=== PATIENT | female | born 1990 | race Hispanic/Latino ===

== ENCOUNTER → 2023-07-21 | Emergency (ER) | payer OTHER ==
--- NOTE | 2023-07-21 12:10 | EDPHYS ---
Physician Documentation [facility] Name: Lakeisha Muse Age: 33 yrs Sex: Female : 1990 Arrival Date: 07/21/2023 Time: 11:19 Bed 9 Private MD: ED Physician Satnam Rausch HPI: 07/21 12:07 This 33 yrs old Female presents to ER via Ambulatory with complaints of Flu ec2 Symptoms. 12:07 Patient arrives today for 4 days of symptoms. Patient reports she been experiencing ec2 cough and cold as well as nausea, vomiting, diarrhea. Reports decreased appetite. Patient reports no difficulty breathing. Multiple other sick contacts at home with the same symptoms.. Historical: - Allergies: 11:53 No Known Allergies; hb - Home Meds: 11:53 IMPLANTED CONTROL [Active]; hb - PMHx: 11:53 Bipolar disorder; hb - Immunization history:: Adult Immunizations up to date. - Social history:: Smoking status: . ROS: 12:07 Constitutional: as per hpi ec2 Exam: 12:07 Constitutional: GEN: NAD Head: atraumatic Eyes: EOMI Ears: External ears are normal. ec2 Mouth: No posterior oropharynx erythema, no exudates appreciated. CV: regular rate LUNGS: no respiratory distress, no wheezes, rales, or rhonchi ABD: non-distended, soft, nontender, not guarding, not rigid SKIN: no evidence of rashes MSK: no evidence of trauma NEURO: moves all extremities equally Vital Signs: 11:52 BP 124 / 87; Pulse 103; Resp 20; Temp 98.1(TE); Pulse Ox 100% on R/A; Weight 108.8 kg; hb Pain 5/10; 11:52 Pain Scale: Adult hb MDM: 12:06 Patient medically screened. ec2 12:07 Data reviewed: vital signs. ED course: Patient arrives today for URI signs and symptoms ec2 with associated nausea, vomiting, diarrhea. Examination remarkable for well-appearing nontoxic dividual is otherwise in no acute distress with a reassuring cardiopulmonary examination with minimal tachycardia appreciated. I suspect a viral infection given the multiple sick contacts with the same symptoms. Will discharge home with prescription for cough medication as well as nausea medication. Low suspicion for pneumonia given lack of lung sounds differences, low suspicion for PATRIC or dehydration given her general well appearance. Accordingly do not feel lab work or chest x-ray will be beneficial in this setting.. 12:10 ED course: Additionally viral swabs would not be management changing.. ec2 Administered Medications: No medications were administered Disposition Summary: 07/21/23 12:09 Discharge Ordered Notes: Location: Home ec2 Condition: Stable ec2 Diagnosis - Viral infection, unspecified ec2 Followup: ec2 - With: Private Physician - When: - Reason: Recheck today's complaints Discharge Instructions: - Discharge Summary Sheet ec2 Forms: - Family Work Release aa5 - Work release form ec2 - Medication Reconciliation Form ec2 - Thank You Letter ec2 - Antibiotic Education ec2 - Prescription Opioid Use ec2 - Patient Portal Instructions ec2 - Leadership Thank You Letter ec2 Prescriptions: - Zofran 4 mg Oral Tablet - take 1 tablet ORAL route every 12 hours As needed; 20 tablet; Refills: 0, ec2 Product Selection Permitted - Tessalon Perles 100 mg Oral Capsule - take 1 capsule ORAL route every 8 hours As needed; 15 capsule; Refills: 0, ec2 Product Selection Permitted Signatures: Diane Lantigua, RN RN Satnam Rausch MD MD ec2
--- NOTE | 2023-07-21 12:10 | ER ---
Nurse's Notes [facility] Name: Lakeisha Muse Age: 33 yrs Sex: Female : 1990 Arrival Date: 07/21/2023 Time: 11:19 Bed 9 Private MD: Diagnosis: Viral infection, unspecified Presentation: 07/21 11:52 Chief complaint: N/V/D, malaise, body aches, sore throat, headache, and SOB x 4 days. hb Coronavirus screen: At this time, the client does not indicate any symptoms associated with coronavirus-19. Ebola Screen: No symptoms or risks identified at this time. Initial Sepsis Screen: Does the patient meet any 2 criteria? No. Patient's initial sepsis screen is negative. Does the patient have a suspected source of infection? No. Patient's initial sepsis screen is negative. Risk Assessment: Do you want to hurt yourself or someone else? Patient reports no desire to harm self or others. Onset of symptoms was July 17, 2023. 11:52 Method Of Arrival: Ambulatory hb 11:52 Acuity: CHERRY 4 hb Historical: - Allergies: 11:53 No Known Allergies; hb - Home Meds: 11:53 IMPLANTED CONTROL [Active]; hb - PMHx: 11:53 Bipolar disorder; hb - Immunization history:: Adult Immunizations up to date. - Social history:: Smoking status: . Screenin:59 [facility] ED Fall Risk Assessment (Adult) Score/Fall Risk Level 0 - 2 = Low Risk hb Oriented to surroundings, Maintained a safe environment, Educated pt \T\ family on fall prevention, incl call for assistance when getting out of bed. Abuse screen: Denies threats or abuse. Denies injuries from another. Nutritional screening: No deficits noted. Tuberculosis screening: No symptoms or risk factors identified. Assessment: 11:59 General: Appears in no apparent distress. Behavior is calm, cooperative. Pain: Pain hb currently is 5 out of 10 on a pain scale. Neuro: Level of Consciousness is awake, alert, obeys commands, Oriented to person, place, time, situation. Cardiovascular: Patient's skin is warm and dry. Respiratory: Respiratory effort is even, unlabored, Respiratory pattern is regular, symmetrical. 12:53 Reassessment: Patient is alert, oriented x 3, equal unlabored respirations, skin aa5 warm/dry/pink. Vital Signs: 11:52 BP 124 / 87; Pulse 103; Resp 20; Temp 98.1(TE); Pulse Ox 100% on R/A; Weight 108.8 kg; hb Pain 5/10; 11:52 Pain Scale: Adult hb ED Course: 11:25 Patient arrived in ED. rg4 11:25 Satnam Rausch MD is Attending Physician. ec2 11:53 Triage completed. hb 11:59 Arm band placed on. hb 11:59 Patient has correct armband on for positive identification. Provided Education on: . hb 11:59 No provider procedures requiring assistance completed. Patient did not have IV access hb during this emergency room visit. Administered Medications: No medications were administered Medication: 11:59 VIS not applicable for this client. hb Outcome: 12:09 Discharge ordered by . ec2 12:53 Discharged to home ambulatory, aa5 12:53 Condition: stable 12:53 Discharge instructions given to patient, Instructed on discharge instructions, follow up and referral plans. medication usage, Demonstrated understanding of instructions, follow-up care, medications, Prescriptions given X 2, 12:54 Patient left the ED. aa5 Signatures: Viry Llamas RN RN aa5 Diane Lantigua, Myrna Brown RN rg4 Satnam Rausch MD MD ec2
[2023-07-21 14:52] VITALS: BP 124/87; TEMP 98.1; O2SAT 100
== END ==
LOC: ER 11:19
DX: B34.9 Viral infection, unspecified (principal); R05.9 Cough, unspecified
CPT/HCPCS: 99283

== ENCOUNTER 2023-07-27 13:27 | Inpatient (IN) | payer OTHER ==
--- NOTE | 2023-07-27 14:35 | RAD REPORT ---
EXAM DESCRIPTION: CT - Head C Spine Mpr Wo Con - 07/27/2023 1:56 pm CLINICAL HISTORY: Head and neck injury status post fall. Head and neck pain COMPARISON: None. TECHNIQUE: Computed axial tomography of the head and cervical spine was obtained. Sagittal and coronal reconstruction was performed. All CT scans are performed using dose optimization technique as appropriate and may include automated exposure control or mA/KV adjustment according to patient size. FINDINGS: An intracranial bleed is not seen. The ventricles are normal in caliber. No significant hypodensity within the brain. An extra-axial fluid collection is not noted. 2.4 centimeter calcification abuts the left aspect of the falx. No surrounding edema Fluid within the visualized sinuses and mastoids is not seen A cervical fracture is not visualized. No dislocation is noted. Mild ground-glass opacity right upper lobe IMPRESSION: No acute intracranial abnormality is seen. A 2.4 centimeter calcification abuts the left aspect of the falx. It probably is idiopathic. A mening ioma is a another consideration. It is recommended that the patient have a non emergent MRI brain wit h contrast for further evaluation A cervical fracture is not visualized. Mild ground-glass opacity right upper lobe indicative of mild alveolitis
[2023-07-27 15:04] LABS: Absolute Lymphocytes (CBC) 1.3 K/uL (0.7-4.9); Hematocrit 38.5 % (36.0-45.0); Lymphocytes % 9.4 % (15.3-44.8); MCV 70.3 fL (80-100); MPV 8.9 fL (7.6-11.3); Platelets 285 thou/uL (152-406); RBC Red Blood Cell Count 5.48 M/uL (3.86-4.86)
[2023-07-27] MEDS ORDERED: ONDANSETRON 4 MG/2 ML VIAL ONE (15:09)
[2023-07-27] MEDS ORDERED: IPRATROPIUM BROM 0.5MG/2.5ML ONE (15:09)
[2023-07-27] MEDS ORDERED: LEVALBUTEROL 1.25 MG/3 ML NEB ONE (15:09)
[2023-07-27] MEDS ORDERED: AZITHROMYCIN 500 MG INJ IVPB ONE (15:09)
[2023-07-27] MEDS ORDERED: CEFTRIAXONE 1000 MG/VIAL ONE (15:09)
[2023-07-27] MEDS ORDERED: FAMOTIDINE 20 MG/2 ML VIAL IV ONE (15:10)
[2023-07-27] MEDS ORDERED: NA CHLORIDE 0.9% 2,000 ML ONE (15:10)
[2023-07-27] MEDS ORDERED: NA CHLORIDE 0.9% 250 ML ONE (15:10)
[2023-07-27 15:18] LABS: Albumin 3.3 g/dL (3.4-5.0); Bilirubin Total 0.4 mg/dL (0.2-1.0); Protein, Total 9.3 g/dL (6.4-8.2)
[2023-07-27 15:25] LABS: Potassium 2.6 mEq/L (3.5-5.1)
[2023-07-27 15:40] LABS: Protime INR 1.21
[2023-07-27 15:44] LABS: Magnesium 2.1 mg/dL (1.6-2.4); Troponin High Sensitivity 4.1 pg/mL (<58.9)
[2023-07-27 15:49] LABS: Blood O2 Saturation 97.8 % (92-98.5)
[2023-07-27 15:57] LABS: SARS-CoV-2 Antigen Rapid Res Negative (Negative)
[2023-07-27 16:29] LABS: Specific Gravity 1.023 (1.005-1.030)
[2023-07-27 16:36] LABS: Specific Gravity 1.023 (1.005-1.030); Urine Bacteria <20 /HPF (<20); Urine Bilirubin NEGATIVE (Negative); Urine Blood 2+ (Negative); Urine Clarity Extremely Turbid (Clear); Urine Color Yellow (Yellow); Urine Glucose NEGATIVE (Negative); Urine Granular Casts 0-5 /LPF (None Seen); Urine Mucus Slight /HPF (None Seen); Urine Protein 2+ (Negative); Urine RBC <5 /HPF (None Seen); Urine Urobilinogen Normal (Normal); Urine pH 6.5 (5.0-7.0)
[2023-07-27] MEDS ORDERED: POTASSIUM 25 MEQ EFFERV TAB ONE (16:36)
[2023-07-27] MEDS ORDERED: NS KCL 20MEQ 0 ML IV ONE (16:36)
[2023-07-27] MEDS ORDERED: KCL 20 MEQ/100 mL IVPB 100 ML IV ONE (16:37)
--- NOTE | 2023-07-27 17:05 | EDPHYS ---
Physician Documentation [facility] Name: Lakeisha Muse Age: 33 yrs Sex: Female : 1990 Arrival Date: 07/27/2023 Time: 13:27 Bed 6 Private MD: ED Physician Rony Carrera HPI: 07/27 16:54 This 33 yrs old Female presents to ER via Ambulatory with complaints of Passed celio Out Prior To Arrival, Mouth Problem, Head Injury-Adult. 16:54 The patient has experienced syncope, collapsed. Onset: The symptoms/episode celio began/occurred just prior to arrival, today. Duration: This was a single episode, that is still ongoing. Context: the episode(s) was witnessed, by family. Associated injury: Head/face: contusion. Associated signs and symptoms: Pertinent positives: dizziness, nausea, vomiting, weakness. Current symptoms: headache. The patient has not experienced similar symptoms in the past. 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 - Social history:: Smoking status: Patient denies any tobacco usage or history of. ROS: 16:56 Constitutional: Negative for fever, chills, and weight loss, Eyes: Negative for injury, celio pain, redness, and discharge, ENT: Negative for injury, pain, and discharge, Neck: Negative for injury, pain, and swelling, Cardiovascular: Negative for chest pain, palpitations, and edema, Respiratory: Negative for shortness of breath, cough, wheezing, and pleuritic chest pain, Back: Negative for injury and pain, : Negative for injury, bleeding, discharge, and swelling, MS/Extremity: Negative for injury and deformity, Skin: Negative for injury, rash, and discoloration, Psych: Negative for depression, anxiety, suicide ideation, homicidal ideation, and hallucinations, Allergy/Immunology: Negative for hives, rash, and allergies, Endocrine: Negative for neck swelling, polydipsia, polyuria, polyphagia, and marked weight changes, 16:56 Abdomen/GI: Positive for abdominal pain, nausea and vomiting, abdominal cramps, Exam: 16:56 Constitutional: This is a well developed, well nourished patient who is awake, alert, celio and in no acute distress. Head/Face: Normocephalic, atraumatic. Eyes: Pupils equal round and reactive to light, extra-ocular motions intact. Lids and lashes normal. Conjunctiva and sclera are non-icteric and not injected. Cornea within normal limits. Periorbital areas with no swelling, redness, or edema. ENT: Nares patent. No nasal discharge, no septal abnormalities noted. Tympanic membranes are normal and external auditory canals are clear. Oropharynx with no redness, swelling, or masses, exudates, or evidence of obstruction, uvula midline. Mucous membranes moist. Neck: Trachea midline, no thyromegaly or masses palpated, and no cervical lymphadenopathy. Supple, full range of motion without nuchal rigidity, or vertebral point tenderness. No Meningismus. Chest/axilla: Normal chest wall appearance and motion. Nontender with no deformity. No lesions are appreciated. Respiratory: Lungs have equal breath sounds bilaterally, clear to auscultation and percussion. No rales, rhonchi or wheezes noted. No increased work of breathing, no retractions or nasal flaring. Back: No spinal tenderness. No costovertebral tenderness. Full range of motion. Skin: Warm, dry with normal turgor. Normal color with no rashes, no lesions, and no evidence of cellulitis. MS/ Extremity: Pulses equal, no cyanosis. Neurovascular intact. Full, normal range of motion. Neuro: Awake and alert, GCS 15, oriented to person, place, time, and situation. Cranial nerves II-XII grossly intact. Motor strength 5/5 in all extremities. Sensory grossly intact. Cerebellar exam normal. Normal gait. Psych: Awake, alert, with orientation to person, place and time. Behavior, mood, and affect are within normal limits. 16:56 Cardiovascular: Rate: tachycardic, actual rate is 108 bpm, Rhythm: regular, Pulses: Pulses are 4+ in bilateral radial, brachial, femoral, popliteal, posterior tibial and and dorsalis pedis arteries.. Heart sounds: normal, Edema: is not appreciated, JVD: is not appreciated, 16:56 ECG was reviewed by the Attending Physician. Vital Signs: 14:35 BP 118 / 80; Pulse 108; Resp 18; Temp 99; Pulse Ox 95% ; Pain 10/10; ll1 14:53 BP 131 / 86; Pulse 89; Resp 27; Pulse Ox 95% on 2 lpm NC; me1 15:30 BP 105 / 67; Pulse 105; Resp 29; Pulse Ox 100% on R/A; me1 16:39 BP 113 / 67; Pulse 107; Resp 25; Pulse Ox 96% on 2 lpm NC; me1 17:35 BP 111 / 70; Pulse 101; Resp 24; Pulse Ox 99% on 2 lpm NC; me1 18:00 BP 110 / 63; Pulse 99; Resp 24; Pulse Ox 99% on Nebulizer Mask; me1 14:35 Pain Scale: Adult ll1 Terrie Coma Score: 14:35 Eye Response: spontaneous(4). Motor Response: obeys commands(6). Verbal Response: ll1 oriented(5). Total: 15. MDM: 13:35 Patient medically screened. celio 16:58 Differential Diagnosis: cardiac arrhythmia, GI bleed, idiopathic syncope, sepsis, celio transient ischemic attack, vasovagal episode. Differential diagnosis: Nonspecific abd pain, gastritis, cholecystitis, viral gastroenteritis, gastroenteritis, bowel obstruction, coronary artery disease, Cholelithiasis, diverticulitis, gastritis, GI Bleed, Mesenteric ischemia or infarction, non-specific abd pain, Peptic Ulcer Disease, urinary tract infection. Data reviewed: vital signs, nurses notes, lab test result(s), EKG, radiologic studies, CT scan, plain films. Consideration of Admission/Observation Patient was admitted/placed on observation. Escalation of care including admission/observation considered. I considered the following discharge prescriptions or medication management in the emergency department Medications were administered in the Emergency Department. See MAR. Independent interpretation of the following test(s) in the Emergency Department EKG: See my EKG interpretation above. Test considered but Not performed: Ultrasound no abd usg. Care significantly affected by the following chronic conditions: Obesity, bipolar. 07/27 13:36 Order name: CBC with Diff; Complete Time: 15:44 [facility] 07/27 13:36 Order name: Comprehensive Metabolic Panel; Complete Time: 15:44 [facility] 07/27 13:36 Order name: Urinalysis w/ reflexes; Complete Time: 16:44 [facility] 07/27 13:36 Order name: PREGU; Complete Time: 16:44 [facility] 07/27 15:01 Order name: Blood Culture Adult (2) [facility] 07/27 15:01 Order name: Lactate w/ 2H reflex if indic.; Complete Time: 16:20 [facility] 07/27 15:01 Order name: Lipase; Complete Time: 15:45 [facility] 07/27 15:01 Order name: SARS RAPID; Complete Time: 16:20 [facility] 07/27 15:01 Order name: Flu; Complete Time: 16:20 [facility] 07/27 15:01 Order name: Troponin High Sensitivity; Complete Time: 15:45 [facility] 07/27 15:01 Order name: BNP; Complete Time: 15:45 [facility] 07/27 15:01 Order name: PT-INR; Complete Time: 15:44 [facility] 07/27 15:01 Order name: Magnesium; Complete Time: 15:45 [facility] 07/27 15:02 Order name: ABG; Complete Time: 16:20 [facility] 07/27 15:44 Order name: Phosphorus; Complete Time: 16:20 [facility] 07/27 16:39 Order name: Urine Culture [facility] 07/27 19:15 Order name: T4 Free [facility] 07/27 19:15 Order name: Thyroid Stimulating Hormone [facility] 07/27 13:36 Order name: CT Head C Spine; Complete Time: 14:58 [facility] 07/27 15:46 Order name: Chest Single View XRAY [facility] 07/27 16:54 Order name: CT Chest, Abdomen, Pelvis - W/Contrast [facility] 07/27 18:32 Order name: CT [facility] 07/27 13:36 Order name: EKG; Complete Time: 13:36 [facility] 07/27 13:36 Order name: EKG - Nurse/Tech; Complete Time: 14:57 [facility] 07/27 15:44 Order name: IV Saline Lock - Large Bore; Complete Time: 16:13 [facility] EC:56 Rate is 80 beats/min. Rhythm is regular. QRS [place] is Normal. RI interval is normal. QRS celio interval is normal. QT interval is normal. No Q waves. T waves are Normal. No ST changes noted. Clinical impression: NSR w/ Non-specific ST/T Changes and No evidence of ischemia. Interpreted by me. Reviewed by me. Administered Medications: 15:28 Drug: NS 0.9% IV 1000 ml IV at 1 bolus Per protocol; 1000 mL bolus Route: IV; Rate: 1 me1 bolus; Site: right antecubital; 17:42 Follow up: IV Status: Completed infusion; IV Intake: 1000ml me1 15:28 Drug: Rocephin IV 1 grams IV at per protocol once; Given slow IV push per pharmacy me1 instructions Route: IV; Rate: per protocol; Site: right antecubital; 15:30 Follow up: IV Status: Completed infusion me1 17:07 Follow up: Response: No adverse reaction me1 15:28 Drug: Ondansetron IVP 4 mg IVP once; over 2 minutes Route: IVP; Site: right antecubital;me1 17:07 Follow up: Response: No adverse reaction; Nausea is decreased me1 15:28 Drug: NS 0.9% IV 1000 ml IV at 1000 ml once Route: IV; Rate: 1000 ml; Site: right ut1 antecubital; 15:28 Drug: Zithromax IVPB 500 mg IVPB once over 1 hrs; mix in 250 mL NS Route: IVPB; Infused me1 Over: 1 hrs; Site: right antecubital; 17:06 Follow up: Response: No adverse reaction; IV Status: Completed infusion me1 15:29 Drug: Famotidine IVP 20 mg IVP once; dilute with 10 mL 0.9% NaCl; give over 2 minutes me1 Route: IVP; Site: right antecubital; 17:07 Follow up: Response: No adverse reaction me1 15:29 Drug: Levalbuterol Inhalation 2.5 mg Inhalation once Route: Inhalation; me1 17:07 Follow up: Response: No adverse reaction me1 15:29 Drug: Ipratropium Inhalation Aerosol 0.5 mg Inhalation once Route: Inhalation; me1 17:06 Follow up: Response: No adverse reaction me1 16:39 Drug: Potassium PO Effervescent Tablet 50 mEq PO once; dissolve in 4 ounces of water or me1 juice Route: PO; 17:07 Follow up: Response: No adverse reaction me1 16:47 CANCELLED (Duplicate Order): ns 0.9% with kcl20 meq/l 1000 ml IV at 125 ml/hr continuouscha 16:49 Drug: Potassium Chloride IV 20 mEq IV at per protocol once; administer over 1-2 hours me1 Route: IV; Rate: per protocol; Site: right antecubital; 17:32 Drug: Potassium Phosphate IV 15 mmol IV at per protocol once; dose as phosphate; infuse me1 over 4-6 hours (mix in 250 mL NS) Route: IV; Rate: per protocol; Site: left forearm; Disposition Summary: 07/27/23 17:04 Hospitalization Ordered Notes: Hospitalization Status: Inpatient Admission celio Provider: Aaliyah Tafoya cha Location: Telemetry/MedSurg (Inpatient) celio Condition: Fair celio Problem: new celio Symptoms: have improved celio Bed/Room Type: Standard [facility] Room Assignment: [id number](07/27/23 17:55) bc6 Diagnosis - Vomiting celio - Dehydration celio - Obesity, unspecified celio - Hypokalemia celio - Non ST elevation DC celio Forms: - Medication Reconciliation Form celio - SBAR form celio - Leadership Thank You Letter celio Signatures: Dispatcher [employer] EDRony Frye MD MD cha Williams, Irene, RN RN iw Dick [place], SUBSTANCE ABUSE RN-C SUBSTANCE ABUSE RN-Cla1 Mark Monreal RN RN 1 Ly rUban bc6 Argelia Aleman RN RN me1 Corrections: (The following items were deleted from the chart) 16:47 15:45 NS 0.9% with KCl IV 20 mEq/L 1000 ml IV at 125 ml/hr continuous ordered. celio [facility] 17:55 17:04 celio bc6
--- NOTE | 2023-07-27 17:05 | ER ---
Nurse's Notes [facility] Name: Lakeisha Muse Age: 33 yrs Sex: Female : 1990 Arrival Date: 07/27/2023 Time: 13:27 Bed 6 Private MD: Diagnosis: Vomiting;Dehydration;Obesity, unspecified;Hypokalemia;Non ST elevation [place] Presentation: 07/27 13:49 Chief complaint: Patient states: Syncopal episode with head injury. In CT. Ebola iw Screen: Patient denies travel to an Ebola-affected area in the 21 days before illness onset. 13:49 Method Of Arrival: Ambulatory iw 14:35 Chief complaint: Patient states: N/V/D off/on for 2 weeks. Not eating the past two ll1 weeks. Gums swollen and bleeding for 3 days. Syncopal event today. N/V noted during triage. Coronavirus screen: Client denies travel out of the [place] in the last 14 days. diarrhea, fatigue, fever, headache, nausea, vomiting. Client presents with at least one sign or symptom that may indicate coronavirus-19. Standard/surgical mask placed on the client. Mechanism of Injury: The problem was sustained at home, resulted from a fall. Initial Sepsis Screen: Does the patient meet any 2 criteria? No. Patient's initial sepsis screen is negative. Does the patient have a suspected source of infection? Yes: Other: N/V/D. Risk Assessment: Do you want to hurt yourself or someone else? Patient reports no desire to harm self or others. Onset of symptoms was July 06, 2023. 14:35 Acuity: CHERRY 2 iw Triage Assessment: 14:37 General: Appears uncomfortable, ill, Behavior is cooperative, appropriate for age. ll1 Pain: Complains of pain in head Quality of pain is described as aching, throbbing. EENT: Reports pain in gums. Neuro: Reports dizziness, headache a syncopal episode weakness. GI: Reports cramping, diarrhea, nausea, vomiting. 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 - Social history:: Smoking status: Patient denies any tobacco usage or history of. Screenin:30 [facility] ED Fall Risk Assessment (Adult) History of falling in the last 3 months, me1 including since admission No falls in past 3 months (0 pts) Confusion or Disorientation No (0 pts) Intoxicated or Sedated No (0 pts) Impaired Gait No (0 pts) Mobility Assist Device Used No (0 pt) Altered Elimination No (0 pt) Score/Fall Risk Level 0 - 2 = Low Risk Maintained a safe environment, Provided non-skid footwear, Hourly rounding (assess needs \T\ fall precautionary measures) done. Abuse screen: Denies threats or abuse. Nutritional screening: No deficits noted. Tuberculosis screening: No symptoms or risk factors identified. Assessment: 14:30 General: Appears uncomfortable, ill, obese, well developed, well nourished, Behavior is me1 calm, cooperative, appropriate for age. Pain: Denies pain. Neuro: Level of Consciousness is awake, alert, obeys commands, Oriented to person, place, time, situation, Appropriate for age Reports N/V/D off/on for 2 weeks. Not eating the past two weeks. Gums swollen and bleeding for 3 days. Syncopal event today. N/V noted during triage. Neuro: Reports a syncopal episode. Cardiovascular: Capillary refill < 3 seconds Patient's skin is warm and dry. Respiratory: Reports shortness of breath at rest on exertion since 3 weeks ago cough that is productive, Airway is patent Trachea midline Respiratory effort is even, unlabored, Respiratory pattern is regular, symmetrical. EENT: Reports bleeding gums. 14:38 Reassessment: No changes from previously documented assessment. Patient and/or family ll1 updated on plan of care and expected duration. Pain level reassessed. Vital Signs: 14:35 BP 118 / 80; Pulse 108; Resp 18; Temp 99; Pulse Ox 95% ; Pain 10/10; ll1 14:53 BP 131 / 86; Pulse 89; Resp 27; Pulse Ox 95% on 2 lpm NC; me1 15:30 BP 105 / 67; Pulse 105; Resp 29; Pulse Ox 100% on R/A; me1 16:39 BP 113 / 67; Pulse 107; Resp 25; Pulse Ox 96% on 2 lpm NC; me1 17:35 BP 111 / 70; Pulse 101; Resp 24; Pulse Ox 99% on 2 lpm NC; me1 18:00 BP 110 / 63; Pulse 99; Resp 24; Pulse Ox 99% on Nebulizer Mask; me1 14:35 Pain Scale: Adult ll1 Casey Coma Score: 14:35 Eye Response: spontaneous(4). Motor Response: obeys commands(6). Verbal Response: ll1 oriented(5). Total: 15. ED Course: 13:28 Patient arrived in ED. rg4 13:34 Rony Carrera MD is Attending Physician. celio 13:49 Arm band placed on. iw 13:55 CT Head C Spine In Process Unspecified. EDMS 14:00 Inserted saline lock: 20 gauge in right antecubital area, using aseptic technique. me1 Inserted saline lock: 22 gauge in left forearm, using aseptic technique. 14:30 Patient has correct armband on for positive identification. Bed in low position. Call me1 light in reach. Side rails up X2. Provided Education on: POC. Verbalized understanding. . 14:30 No provider procedures requiring assistance completed. me1 14:37 Triage completed. ll1 14:55 Argelia Aleman, FAITH is Primary Nurse. me1 16:25 Chest Single View XRAY In Process Unspecified. EDMS 17:03 Aaliyah Tafoya MD is Hospitalizing Provider. celio 19:34 Patient admitted, IV remains in place. me1 Administered Medications: 15:28 Drug: NS 0.9% IV 1000 ml IV at 1 bolus Per protocol; 1000 mL bolus Route: IV; Rate: 1 me1 bolus; Site: right antecubital; 17:42 Follow up: IV Status: Completed infusion; IV Intake: 1000ml me1 15:28 Drug: Rocephin IV 1 grams IV at per protocol once; Given slow IV push per pharmacy me1 instructions Route: IV; Rate: per protocol; Site: right antecubital; 15:30 Follow up: IV Status: Completed infusion me1 17:07 Follow up: Response: No adverse reaction me1 15:28 Drug: Ondansetron IVP 4 mg IVP once; over 2 minutes Route: IVP; Site: right antecubital;me1 17:07 Follow up: Response: No adverse reaction; Nausea is decreased me1 15:28 Drug: NS 0.9% IV 1000 ml IV at 1000 ml once Route: IV; Rate: 1000 ml; Site: right me1 antecubital; 15:28 Drug: Zithromax IVPB 500 mg IVPB once over 1 hrs; mix in 250 mL NS Route: IVPB; Infused me1 Over: 1 hrs; Site: right antecubital; 17:06 Follow up: Response: No adverse reaction; IV Status: Completed infusion me1 15:29 Drug: Famotidine IVP 20 mg IVP once; dilute with 10 mL 0.9% NaCl; give over 2 minutes me1 Route: IVP; Site: right antecubital; 17:07 Follow up: Response: No adverse reaction me1 15:29 Drug: Levalbuterol Inhalation 2.5 mg Inhalation once Route: Inhalation; me1 17:07 Follow up: Response: No adverse reaction me1 15:29 Drug: Ipratropium Inhalation Aerosol 0.5 mg Inhalation once Route: Inhalation; me1 17:06 Follow up: Response: No adverse reaction me1 16:39 Drug: Potassium PO Effervescent Tablet 50 mEq PO once; dissolve in 4 ounces of water or me1 juice Route: PO; 17:07 Follow up: Response: No adverse reaction me1 16:47 CANCELLED (Duplicate Order): ns 0.9% with kcl20 meq/l 1000 ml IV at 125 ml/hr continuouscha 16:49 Drug: Potassium Chloride IV 20 mEq IV at per protocol once; administer over 1-2 hours me1 Route: IV; Rate: per protocol; Site: right antecubital; 17:32 Drug: Potassium Phosphate IV 15 mmol IV at per protocol once; dose as phosphate; infuse me1 over 4-6 hours (mix in 250 mL NS) Route: IV; Rate: per protocol; Site: left forearm; Medication: 14:30 VIS not applicable for this client. me1 Intake: 17:42 IV: 1000ml; Total: 1000ml. me1 Outcome: 17:04 Decision to Hospitalize by Provider. celio 19:33 Admitted to Tele accompanied by tech, via wheelchair, room 404, with oxygen, with me1 chart, Report called to FAITH Avina 19:33 Condition: stable 19:49 Patient left the ED. ha1 Signatures: Dispatcher [employer] Rony Lipscomb MD MD cha Williams, Irene RN Myrna Sheridan rg4 Mark Monreal RN RN 1 Penelope Aragon, RN RN 1 Argelia Aleman RN RN wy1 Corrections: (The following items were deleted from the chart) 14:35 13:49 Chief complaint: Patient states: Syncopal episode with head injury. [facility] 15:02 14:35 Acuity: CHERRY 3 1 18:24 14:35 Chief complaint: Patient states: N/V/D off/on for 2 weeks. Not eating the past me1 two weeks. Gums swollen and bleeding for 3 days. Syncopal event today. N/V noted during triage 1
[2023-07-27] MEDS ORDERED: POTASSIUM PHOS IN 0.9 % NACL 15 MMOL/250 ML BAG IV ONE (17:15)
[2023-07-27] MEDS ORDERED: ALBUTEROL 2.5 MG/3 ML NEB SOL NEB PRN (17:42)
[2023-07-27] MEDS ORDERED: ONDANSETRON 4 MG/2 ML VIAL IV PRN (17:42)
[2023-07-27] MEDS ORDERED: SODIUM CHLORIDE 0.9% 10ML INJ IV PRN (17:45)
[2023-07-27] MEDS ORDERED: MORPHINE 2 MG/ML SYR IV PRN (17:46)
--- NOTE | 2023-07-27 17:53 | P.HP ---
Certification for Inpatient Patient admitted to: Inpatient With expected LOS: <2 Midnights Patient will require the following post-hospital care: None Practitioner: I am a practitioner with admitting privileges, knowledge of patient current condition, hospital course, and medical plan of care. Services: Services provided to patient in accordance with Admission requirements found in Title 42 Section 412.3 of the Code of Federal Regulations <Ken Munguia - Last Filed: 07/27/23 18:09> Patient History Date of Service: 07/27/23 Reason for admission: Nausea , vomiting, hypokalema, History of Present Illness: This Lakeisha, 33-year-old female with no medical history presented to the emergency room with complaints of passing out prior to arrival. Patient has experienced syncope, collapsed. Episode was witnessed by the family. Patient reports that she has been sick for several days, unable to eat or drink. Patien t is positive for dizziness, nausea, and vomiting, weakness, and diffuse abdominal pain. Patient denies chest pain or shortness of breath. Patient is alert oriented x 3 moving all extremities spontaneously. ED course Vital signs 118/80, pulse 108, respiration 18, temperature 99, pulse ox 95%, pain 10/10. EKG showing sinus tachycardia.QRS [place] is Normal. AR interval is normal. QRS interval is normal. QT interval is normal. No Q waves. T waves are Normal. No ST changes noted. Clinical impression: NSR w/ Non-specific ST/T Changes and No evidence of ischemia. Patient was given normal saline 1 L bolus, Rocephin, Zofran, Zithromax, famotidine, albuterol inhalation, ipratropium inhalation, potassium 50 mEq p.o., and potassium IV for 20 mEq x 1 Lab evaluation-CBC showing leukocytosis WBC 13.8, elevated INR 1.21, metabolic panel hypokalemia potassium of 2.6 urinalysis is turbid with the microscopic hematuria. Lactic acid is normal . CT head and C-spine without contrast shows no acute intracranial abnormalities. Admitting the patient with a diagnosis of vomiting, dehydration, hypokalemia, UTI. - Past Medical/Surgical History Diabetic: No - Social History Alcohol use: No CD- Drugs: No Caffeine use: Yes <Munguia,Ken - Last Filed: 07/27/23 18:09> Date of Service: 07/27/23 <Aaliyah Tafoya Larissa - Last Filed: 07/27/23 19:08> Allergies No Known Allergies Allergy (Uncoded 03/01/16 03:10) Unknown Cherries Adverse Reaction (Mild, Uncoded 04/05/12 16:56) Nausea/Vomiting Home Medications: Vits W-Ca,Fe,FA(<1Mg) [] 1 each PO DAILY 04/05/12 Review of Systems 10-point ROS is otherwise unremarkable <Ken Munguia - Last Filed: 07/27/23 18:09> Physical Examination - Physical Exam General: Alert, Oriented x3 HEENT: Atraumatic, Normocephalic Neck: Supple, 2+ carotid pulse no bruit Respiratory: Clear to auscultation bilaterally, Normal air movement Cardiovascular: No edema, Normal pulses Capillary refill: <2 Seconds Gastrointestinal: Normal bowel sounds, Soft and benign Musculoskeletal: No clubbing, No swelling Integumentary: No rashes, No breakdown Neurological: Normal gait, Normal speech - Studies Laboratory Data (last 24 hrs) 07/27/23 07/27/23 07/27/23 15:10 14:49 14:49 WBC Hgb Hct Plt Count PT 13.2 H INR 1.21 Sodium Potassium BUN Creatinine Glucose Phosphorus 1.6 L Magnesium 2.1 Total Bilirubin AST ALT Alkaline Phosphatase Lipase 51 07/27/23 07/27/23 14:49 14:49 WBC 13.80 H Hgb 13.0 Hct 38.5 Plt Count 285 PT INR Sodium 130 L Potassium 2.6 L* BUN 15 Creatinine 0.87 Glucose 124 H Phosphorus Magnesium Total Bilirubin 0.4 AST 23 ALT 27 Alkaline Phosphatase 82 Lipase Microbiology Data (last 24 hrs): 07/27/23 15:15 Nasopharnyx Influenza Type A Antigen Screen - Final 07/27/23 15:15 Nasopharnyx Influenza Type B Antigen Screen - Final <Ken Munguia - Last Filed: 07/27/23 18:09> - Studies Laboratory Data (last 24 hrs) 07/27/23 07/27/23 07/27/23 15:10 14:49 14:49 WBC Hgb Hct Plt Count PT 13.2 H INR 1.21 Sodium Potassium BUN Creatinine Glucose Phosphorus 1.6 L Magnesium 2.1 Total Bilirubin AST ALT Alkaline Phosphatase Lipase 51 07/27/23 07/27/23 14:49 14:49 WBC 13.80 H Hgb 13.0 Hct 38.5 Plt Count 285 PT INR Sodium 130 L Potassium 2.6 L* BUN 15 Creatinine 0.87 Glucose 124 H Phosphorus Magnesium Total Bilirubin 0.4 AST 23 ALT 27 Alkaline Phosphatase 82 Lipase Microbiology Data (last 24 hrs): 07/27/23 15:15 Nasopharnyx Influenza Type A Antigen Screen - Final 07/27/23 15:15 Nasopharnyx Influenza Type B Antigen Screen - Final <Aaliyah Tafoya - Last Filed: 07/27/23 19:08> Assessment and Plan - Problems (Diagnosis) (1) Dehydration Current Visit: Yes Status: Acute (2) Vomiting Current Visit: Yes Status: Acute Qualifiers: Vomiting type: unspecified Nausea presence: with nausea Qualified Code(s): R11.2 - Nausea with vomiting, unspecified (3) Hypokalemia Current Visit: Yes Status: Acute (4) UTI (urinary tract infection) Current Visit: Yes Status: Acute Qualifiers: Urinary tract infection type: acute cystitis Hematuria presence: with hematuria Qualified Code(s): N30.01 - Acute cystitis with hematuria - Plan Syncope Dehydration Vomiting Hypokalemia Abdominal pain UTI * Patient has experienced syncope today witnessed by the family. 07/27/2023--CT head and C-spine without contrast shows no acute intracranial abnormalities. Patient denies chest pain or shortness of breath. Patient is alert oriented x 3 moving all extremities spontaneously. * dizziness, dehydration and vomiting for several days, hypokalemia potassium 2.6, potassium was replaced in the emergency room we will repeat the potassium in the night. Will continue to monitor and replete electrolytes * Leukocytosis WBC of 13.8 likely due to ongoing UTI. Lactic acid 1.4. started on IV hydration, antibiotics and supportive care * Vital signs 118/80, pulse 108, respiration 18, temperature 99, pulse ox 95%, pain 10/10.EKG showing sinus tachycardia * Patient has been complaining of diffuse abdominal pain . Analgesics as needed. CT abdomen pending CODE STATUS-full code DVT prophylaxis-Lovenox Diet regular Discharge Plan: Home Plan to discharge in: 48 Hours - Advance Directives Does patient have a Living Will: Yes Does patient have a Durable POA for Healthcare: No - Code Status/Comfort Care Code Status Assessed: Yes (full code) Code Status: Full Code Physician Review: Patient Assessed, Agree with Above Assessment and Plan Time Spent Managing Pts Care (In Minutes): 55 (minutes) <Ken Munguia - Last Filed: 07/27/23 18:09> - Plan Pt seen and examined. I agree with the note by the OCCUPATIONAL HEALTH AND SAFETY MANAGER. Pt is a 33-year-old female with past medical history of bipolar disorder who presented with syncope. Of note, pt reports feeling sick for several days. It started 3 weeks ago when her entire family members got sick. She could not tell me the etiology of the sickness. Pt is negative for COVID and flu. The symptoms worsened to the extent that pt could not eat or drink fluids due to nausea, vomiting and abd pain. On admission, lab studies show WBC 13.8, Hgb 13, K 2.6, Cr 0.87, mag 2.1, Lactate is 1.4. C head is unremarkable. CT abd is pending. At bedside, pt appears weak. A/P: Syncope: Likely due to hypovolemia given GI distress. Will continue IVF, follow up orthostatic vitals, Echo and carotid ultrasound. CT head is unremarkable. It shows a 2.4cm calcification, Volume depletion: Continue IVF Hypokalemia: Due to vomiting. Will replete and monitor. Mag is 2.1. Abd pain: Unkown etiology. CT abd/pelvis shows mild splenomegaly and RLL opacities. Will start iv rocephin and azithro Sepsis 2/2 UTI: Continue rocephin and follow up urine cx. <Aaliyah Tafoya - Last Filed: 07/27/23 19:08>
--- NOTE | 2023-07-27 18:31 | RAD REPORT ---
EXAM DESCRIPTION: CT - Chest Abdomen Pelvis W Cont - 07/27/2023 6:06 pm CLINICAL HISTORY: Chest and abdominal pain COMPARISON: none TECHNIQUE: Computed axial tomography of the chest, abdomen and pelvis was obtained. 100 cc Isovue-30 0 was administered intravenously. Oral contrast was not requested. This limits evaluation of bowel. All CT scans are performed using dose optimization technique as appropriate and may include automated exposure control or mA/KV adjustment according to patient size. FINDINGS: Mild patchy opacities right lung. Mild basilar atelectasis. Left lung is clear No mediastinal or hilar lymphadenopathy. No pleural effusion. No pericardial effusion. Liver, pancreas, adrenals and kidneys are unremarkable Cholecystectomy Small to moderate umbilical hernia contains fat Spleen 14 centimeters No evidence of diverticulitis Normal appendix. No adnexal mass IMPRESSION: Mild patchy right lung opacities may indicate a mild pneumonitis Mild splenomegaly
--- NOTE | 2023-07-27 18:37 | RAD REPORT ---
EXAM DESCRIPTION: Ramon Single View07/27/2023 4:22 pm CLINICAL HISTORY: Cough COMPARISON: CT chest July 27, 2023 FINDINGS: Mild patchy right lung opacities better seen on CT chest same date may indicate a mild pne umonitis Left lung appears clear. Heart is normal size
[2023-07-27] MEDS ORDERED: NA CHLORIDE 0.9% 500 ML ONE (18:54)
[2023-07-27] MEDS: IPRATROPIUM BROM 0.5MG/2.5ML NEB SCH (19:00)
[2023-07-27 19:15] LABS: Thyroid Stimulating Hormone 0.586 uIU/mL (0.358-3.740)
[2023-07-27] MEDS: ENOXAPARIN 40 MG/0.4 ML SQ SCH (21:03)
[2023-07-27] MEDS: NA CHLORIDE 0.9% 1,000 ML IV SCH (21:03)
[2023-07-27 22:03] VITALS: BMI 42.7
[2023-07-27] MEDS: guaiFENesin 100 MG/5 ML UCUP PO PRN (22:10)
[2023-07-28] MEDS: IPRATROPIUM BROM 0.5MG/2.5ML NEB SCH ×4 (01:18→21:38)
[2023-07-28 05:36] LABS: Absolute Lymphocytes (CBC) 1.7 K/uL (0.7-4.9); Hematocrit 28.3 % (36.0-45.0); Lymphocytes % 17.2 % (15.3-44.8); MCV 70.8 fL (80-100); MPV 8.5 fL (7.6-11.3); Platelets 223 thou/uL (152-406)
[2023-07-28 05:49] LABS: Magnesium 1.9 mg/dL (1.6-2.4); Phosphorus 2.3 mg/dL (2.5-4.9); Potassium 2.7 mEq/L (3.5-5.1)
[2023-07-28] MEDS: POTASS/SODIUM PHOSPHATE 1 PKT POWD.PACK PO SCH ×3 (06:36→10:38)
[2023-07-28] MEDS: guaiFENesin 100 MG/5 ML UCUP PO PRN ×2 (06:36→13:00)
[2023-07-28] MEDS: KCL 20 MEQ/100 mL IVPB 20 MEQ/100 ML BAG IV SCH ×3 (06:36→11:00)
[2023-07-28] MEDS: NA CHLORIDE 0.9% 1,000 ML IV SCH ×2 (06:43→17:42)
[2023-07-28] MEDS ORDERED: NA CHLORIDE 0.9% 1,000 ML IV ONE (08:30)
--- NOTE | 2023-07-28 08:37 | P.PN ---
Subjective Date of Service: 07/28/23 Chief Complaint: Nausea , vomiting, hypokalema, Subjective: No new changes, Improving, Doing well Patient is alert and oriented x 3 Resting in the bed NAD Denies any pain or shortness of breath, but c/o increased coughing not relieved with Guefenessin Vital stable <Ken Munguia - Last Filed: 07/28/23 08:32> Date of Service: 07/28/23 <Aaliyah Tafoya - Last Filed: 07/28/23 14:29> Review of Systems 10-point ROS is otherwise unremarkable <Ken Munguia - Last Filed: 07/28/23 08:32> Physical Examination - Vital Signs Temperature: 98.2 F Blood Pressure: 82/48 Pulse: 68 Respirations: 18 Pulse Ox (%): 99 - Physical Exam General: Alert, Oriented x3 HEENT: Atraumatic, Normocephalic Neck: Supple, 2+ carotid pulse no bruit Respiratory: Clear to auscultation bilaterally, Normal air movement, Other (coughing) Cardiovascular: No edema, Normal pulses Capillary refill: <2 Seconds Gastrointestinal: Normal bowel sounds, Soft and benign Musculoskeletal: No clubbing, No swelling Integumentary: No rashes, No breakdown Neurological: Normal gait, Normal speech, Sensation intact - Studies Laboratory Data (last 24 hrs) 07/27/23 07/27/23 07/27/23 15:10 14:49 14:49 WBC Hgb Hct Plt Count PT 13.2 H INR 1.21 Sodium Potassium BUN Creatinine Glucose Phosphorus 1.6 L Magnesium 2.1 Total Bilirubin AST ALT Alkaline Phosphatase Lipase 51 07/27/23 07/27/23 14:49 14:49 WBC 13.80 H Hgb 13.0 Hct 38.5 Plt Count 285 PT INR Sodium 130 L Potassium 2.6 L* BUN 15 Creatinine 0.87 Glucose 124 H Phosphorus Magnesium Total Bilirubin 0.4 AST 23 ALT 27 Alkaline Phosphatase 82 Lipase Microbiology Data (last 24 hrs): 07/27/23 15:00 Blood - Blood Anaerobic Blood Culture - Final 07/27/23 15:15 Blood - Blood Anaerobic Blood Culture - Final 07/27/23 15:15 Nasopharnyx Influenza Type A Antigen Screen - Final 07/27/23 15:15 Nasopharnyx Influenza Type B Antigen Screen - Final <Ken Munguia - Last Filed: 07/28/23 08:32> - Studies Laboratory Data (last 24 hrs) 07/27/23 07/27/23 07/27/23 15:10 14:49 14:49 WBC Hgb Hct Plt Count PT 13.2 H INR 1.21 Sodium Potassium BUN Creatinine Glucose Phosphorus 1.6 L Magnesium 2.1 Total Bilirubin AST ALT Alkaline Phosphatase Lipase 51 07/27/23 07/27/23 14:49 14:49 WBC 13.80 H Hgb 13.0 Hct 38.5 Plt Count 285 PT INR Sodium 130 L Potassium 2.6 L* BUN 15 Creatinine 0.87 Glucose 124 H Phosphorus Magnesium Total Bilirubin 0.4 AST 23 ALT 27 Alkaline Phosphatase 82 Lipase Microbiology Data (last 24 hrs): 07/27/23 15:00 Blood - Blood Anaerobic Blood Culture - Final 07/27/23 15:15 Blood - Blood Anaerobic Blood Culture - Final 07/27/23 15:15 Nasopharnyx Influenza Type A Antigen Screen - Final 07/27/23 15:15 Nasopharnyx Influenza Type B Antigen Screen - Final <Aaliyah Tafoya - Last Filed: 07/28/23 14:29> Assessment And Plan - Current Problems (Diagnosis) (1) Dehydration Current Visit: Yes Status: Acute (2) Vomiting Current Visit: Yes Status: Acute Qualifiers: Vomiting type: unspecified Nausea presence: with nausea Qualified Code(s): R11.2 - Nausea with vomiting, unspecified (3) Hypokalemia Current Visit: Yes Status: Acute (4) UTI (urinary tract infection) Current Visit: Yes Status: Acute Qualifiers: Urinary tract infection type: acute cystitis Hematuria presence: with hematuria Qualified Code(s): N30.01 - Acute cystitis with hematuria - Plan Syncope Dehydration Vomiting Hypokalemia Abdominal pain UTI COUGH,Congestion * Patient has experienced syncope today witnessed by the family. 07/27/2023--CT head and C-spine without contrast shows no acute intracranial abnormalities. Patient denies chest pain or shortness of breath. Patient is alert oriented x 3 moving all extremities spontaneously. * dizziness, dehydration and vomiting for several days, hypokalemia potassium 2.6, potassium was replaced in the emergency room we will repeat the potassium in the night. Will continue to monitor and replete electrolytes * Leukocytosis WBC of 13.8 likely due to ongoing UTI. Lactic acid 1.4. started on IV hydration, antibiotics and supportive care * Vital signs 118/80, pulse 108, respiration 18, temperature 99, pulse ox 95%, pain 10/10.EKG showing sinus tachycardia * Patient has been complaining of diffuse abdominal pain . Analgesics as needed. CT abdomen pending * Cough;Congestion: RADChest Single View07/27/2023 4:22 pm CLINICAL HISTORY: Cough FINDINGS: Mild patchy right lung opacities better seen on CT chest same date may indicate a mild pneumonitis, Left lung appears clear, continue abx nd added Tesslon pearls prn cough CODE STATUS-full code DVT prophylaxis-Lovenox Diet regular Discharge Plan: Home Plan to discharge in: 24 Hours - Code Status/Comfort Care Code Status Assessed: Yes (full code) Code Status: Full Code Physician Review: Patient Assessed, Agree with Above Assessment and Plan Critical Care: No Time Spent Managing PTS Care (In Minutes): 35 (minutes) <Ken Munguia - Last Filed: 07/28/23 08:32> - Plan Pt seen and examined. She is feeling better today. Pt is still having diarrhea. Will follow up stool culture, WBC, ova and parasite. Will continue IVF and replete potassium Mag is 1.9. <Aaliyah Tafoya - Last Filed: 07/28/23 14:29>
[2023-07-28] MEDS: BENZONATATE 100 MG CAP PO PRN ×3 (08:58→22:36)
[2023-07-28] MEDS: ENOXAPARIN 40 MG/0.4 ML SQ SCH (09:00)
[2023-07-28] MEDS ORDERED: guaiFENesin 100 MG/5 ML UCUP PO SCH (09:00)
[2023-07-28] MEDS: PANTOPRAZOLE 40 MG INJ IVP SCH (09:07)
[2023-07-28] MEDS: CEFTRIAXONE 1,000 MG in NA CHLORIDE 0.9% 50 ML IVPB SCH (09:09)
[2023-07-28] MEDS: AZITHROMYCIN IV 500 MG in NA CHLORIDE 0.9% 250 ML IVPB SCH (09:13)
[2023-07-28] MEDS ORDERED: POTASSIUM CL 40 MEQ in NA CHLORIDE 0.9% 500 ML IV SCH (11:00)
[2023-07-28] MEDS ORDERED: INFLUENZA VACCINE (for 6+ mo) 0.5 ML DOSE IMVAC ONE (12:00)
[2023-07-28 20:27] LABS: C.diff Antigen/Toxin Ag neg : Tox neg (NEG : NEG)
[2023-07-28] MEDS: ACETAMINOPHEN 500 MG TAB PO PRN (22:47)
[2023-07-29] MEDS: IPRATROPIUM BROM 0.5MG/2.5ML NEB SCH ×4 (01:54→20:20)
[2023-07-29] MEDS: guaiFENesin 100 MG/5 ML UCUP PO PRN ×4 (03:01→23:10)
[2023-07-29] MEDS: NA CHLORIDE 0.9% 1,000 ML IV SCH (03:04)
[2023-07-29] MEDS ORDERED: POTASSIUM CL SA 10 MEQ TAB PO ONE ×2 (03:37→22:22)
[2023-07-29 06:56] LABS: Absolute Lymphocytes (CBC) 1.6 K/uL (0.7-4.9); Hematocrit 28.4 % (36.0-45.0); Lymphocytes % 18.1 % (15.3-44.8); MCV 71.7 fL (80-100); MPV 8.2 fL (7.6-11.3); Platelets 275 thou/uL (152-406); RBC Red Blood Cell Count 3.96 M/uL (3.86-4.86)
[2023-07-29 07:19] LABS: Bicarbonate 23 mEq/L (21-32); Glomerular Filtration Rate 125 ml/min (=/>90); Glucose Level 104 mg/dL (74-106); Magnesium 1.7 mg/dL (1.6-2.4); Potassium 3.1 mEq/L (3.5-5.1); Sodium Level 139 mEq/L (136-145)
[2023-07-29 07:21] LABS: BUN Blood Urea Nitrogen < 3 mg/dL (7-18)
[2023-07-29] MEDS: AZITHROMYCIN IV 500 MG in NA CHLORIDE 0.9% 250 ML IVPB SCH (08:49)
[2023-07-29] MEDS: PANTOPRAZOLE 40 MG INJ IVP SCH (08:53)
[2023-07-29] MEDS: ENOXAPARIN 40 MG/0.4 ML SQ SCH (08:57)
[2023-07-29] MEDS: CEFTRIAXONE 1,000 MG in NA CHLORIDE 0.9% 50 ML IVPB SCH (08:58)
[2023-07-29] MEDS: BENZONATATE 100 MG CAP PO PRN ×3 (09:03→23:10)
[2023-07-29] MEDS: POTASSIUM CL SA 10 MEQ TAB PO SCH ×2 (10:46→14:37)
[2023-07-29] MEDS: ACETAMINOPHEN 500 MG TAB PO PRN ×2 (10:49→15:29)
[2023-07-29] MEDS ORDERED: MAGNESIUM SULFATE 1 gm IVPB 1 GM/100 ML BAG IV ONE ×2 (11:59→13:00)
--- NOTE | 2023-07-29 12:00 | P.PN ---
Subjective Date of Service: 07/29/23 Chief Complaint: Nausea , vomiting, hypokalema, Subjective: No new changes, Improving, Doing well Patient is alert and oriented x 3 Resting in the bed NAD Denies any pain or shortness of breath Vital stable <Ken Munguia - Last Filed: 07/29/23 11:55> Date of Service: 07/30/23 <ArabellaisdAaliyah Dias - Last Filed: 07/30/23 09:51> Review of Systems 10-point ROS is otherwise unremarkable <Ken Munguia - Last Filed: 07/29/23 11:55> Physical Examination - Vital Signs Temperature: 98.6 F Blood Pressure: 96/55 Pulse: 76 Respirations: 19 Pulse Ox (%): 91 - Physical Exam General: Alert, In no apparent distress HEENT: Atraumatic, Normocephalic Neck: Supple, 2+ carotid pulse no bruit Respiratory: Clear to auscultation bilaterally, Normal air movement Cardiovascular: No edema, Normal pulses Capillary refill: <2 Seconds Gastrointestinal: Normal bowel sounds, Soft and benign Musculoskeletal: No clubbing, No swelling Integumentary: No rashes, No breakdown Neurological: Normal gait, Normal speech - Studies Microbiology Data (last 24 hrs): 07/27/23 15:00 Blood - Blood Anaerobic Blood Culture - Final 07/27/23 15:15 Blood - Blood Anaerobic Blood Culture - Final <Ken Munguia - Last Filed: 07/29/23 11:55> - Studies Microbiology Data (last 24 hrs): 07/27/23 16:10 Clean Catch Urine [place] Count - Final BETWEEN 10,000 & 100,000 CFU/ML 07/27/23 16:10 Clean Catch Urine - Final MIXED TRISTAN. <ArabellasidAaliyah - Last Filed: 07/30/23 09:51> Assessment And Plan - Current Problems (Diagnosis) (1) Dehydration Current Visit: Yes Status: Acute (2) Vomiting Current Visit: Yes Status: Acute Qualifiers: Vomiting type: unspecified Nausea presence: with nausea Qualified Code(s): R11.2 - Nausea with vomiting, unspecified (3) Hypokalemia Current Visit: Yes Status: Acute (4) UTI (urinary tract infection) Current Visit: Yes Status: Acute Qualifiers: Urinary tract infection type: acute cystitis Hematuria presence: with hematuria Qualified Code(s): N30.01 - Acute cystitis with hematuria - Plan Syncope Dehydration Vomiting Hypokalemia Abdominal pain UTI COUGH,Congestion * Patient has experienced syncope today witnessed by the family. 07/27/2023--CT head and C-spine without contrast shows no acute intracranial abnormalities. Patient denies chest pain or shortness of breath. Patient is alert oriented x 3 moving all extremities spontaneously. * dizziness, dehydration and vomiting for several days, * Hypokalemia potassium 3.1 , potassium was replaced i we will repeat the potassium in the night. Will continue to monitor and replete electrolytes * Leukocytosis -Resolved * Patient denies abdominal pain . Analgesics as needed. * Cough;Congestion: Improving. [facility] Single View07/27/2023 4:22 pm CLINICAL HISTORY: Cough FINDINGS: Mild patchy right lung opacities better seen on CT chest same date may indicate a mild pneumonitis, Left lung appears clear, continue abx nd added Tesslon pearls prn cough CODE STATUS-full code DVT prophylaxis-Lovenox Diet regular Discharge Plan: Home Plan to discharge in: 24 Hours - Code Status/Comfort Care Code Status Assessed: Yes (full code) Code Status: Full Code Physician Review: Patient Assessed, Agree with Above Assessment and Plan Critical Care: No Time Spent Managing PTS Care (In Minutes): 35 (minutes) <Ken Munguia - Last Filed: 07/29/23 11:55> - Plan Pt seen and examined. I agree with the note by the BUTTON SEWER. Pt i still having diarrhea. Willc ontinue IVF. Stool WBC is negative. Will follow up C diff and stool ova and parasite. <Aaliyah Tafoya - Last Filed: 07/30/23 09:51>
[2023-07-29] MEDS ORDERED: POTASSIUM CL SA 10 MEQ TAB PO SCH (15:00)
[2023-07-30] MEDS: IPRATROPIUM BROM 0.5MG/2.5ML NEB SCH ×4 (01:50→19:47)
[2023-07-30] MEDS: guaiFENesin 100 MG/5 ML UCUP PO PRN ×2 (05:53→15:05)
[2023-07-30] MEDS: BENZONATATE 100 MG CAP PO PRN ×2 (05:53→15:05)
[2023-07-30 06:59] LABS: Absolute Lymphocytes (CBC) 1.4 K/uL (0.7-4.9); Hematocrit 28.3 % (36.0-45.0); Lymphocytes % 16.3 % (15.3-44.8); MCV 71.4 fL (80-100); MPV 8.5 fL (7.6-11.3); Platelets 296 thou/uL (152-406); RBC Red Blood Cell Count 3.97 M/uL (3.86-4.86)
[2023-07-30 07:12] LABS: Bicarbonate 26 mEq/L (21-32); Glomerular Filtration Rate 125 ml/min (=/>90); Glucose Level 97 mg/dL (74-106); Magnesium 1.7 mg/dL (1.6-2.4); Phosphorus 2.4 mg/dL (2.5-4.9); Potassium 3.5 mEq/L (3.5-5.1); Sodium Level 138 mEq/L (136-145)
[2023-07-30 07:13] LABS: BUN Blood Urea Nitrogen < 3 mg/dL (7-18)
[2023-07-30] MEDS ORDERED: POTASSIUM CL SA 10 MEQ TAB PO ONE (07:24)
[2023-07-30] MEDS: CEFTRIAXONE 1,000 MG in NA CHLORIDE 0.9% 50 ML IVPB SCH (08:16)
[2023-07-30] MEDS: PANTOPRAZOLE 40 MG INJ IVP SCH (08:21)
[2023-07-30] MEDS: AZITHROMYCIN IV 500 MG in NA CHLORIDE 0.9% 250 ML IVPB SCH (08:21)
[2023-07-30] MEDS: ENOXAPARIN 40 MG/0.4 ML SQ SCH (08:22)
--- NOTE | 2023-07-30 14:02 | P.PN ---
Subjective Date of Service: 07/30/23 Chief Complaint: Nausea , vomiting, hypokalema, Subjective: No new changes, No C/O voiced, Improving, Doing well Patient is alert and oriented x 3 Resting in the bed NAD Denies any pain or shortness of breath Vital stable <Ken Munguia - Last Filed: 07/30/23 14:00> Date of Service: 07/31/23 <ArabellasidNehemiasbrittnylayton Larissa - Last Filed: 07/31/23 19:50> Review of Systems 10-point ROS is otherwise unremarkable <Ken Munguia - Last Filed: 07/30/23 14:00> Physical Examination - Vital Signs Temperature: 98.6 F Blood Pressure: 169/84 Pulse: 73 Respirations: 19 Pulse Ox (%): 97 - Physical Exam General: Alert, In no apparent distress HEENT: Atraumatic, Normocephalic Neck: Supple, 2+ carotid pulse no bruit Respiratory: Clear to auscultation bilaterally, Normal air movement Cardiovascular: No edema, Normal pulses Capillary refill: <2 Seconds Gastrointestinal: Normal bowel sounds, Soft and benign, Non-distended Musculoskeletal: No clubbing, No swelling Integumentary: No rashes, No breakdown, No significant lesion Neurological: Normal speech, Normal tone - Studies Microbiology Data (last 24 hrs): 07/27/23 16:10 Clean Catch Urine [place] Count - Final BETWEEN 10,000 & 100,000 CFU/ML 07/27/23 16:10 Clean Catch Urine - Final MIXED TRISTAN. <Ken Munguia - Last Filed: 07/30/23 14:00> Assessment And Plan - Current Problems (Diagnosis) (1) Dehydration Status: Acute (2) Vomiting Status: Acute Qualifiers: Vomiting type: unspecified Nausea presence: with nausea Qualified Code(s): R11.2 - Nausea with vomiting, unspecified (3) Hypokalemia Status: Acute (4) UTI (urinary tract infection) Status: Acute Qualifiers: Urinary tract infection type: acute cystitis Hematuria presence: with hematuria Qualified Code(s): N30.01 - Acute cystitis with hematuria - Plan Syncope Dehydration Vomiting Hypokalemia Abdominal pain UTI COUGH,Congestion * Patient has experienced syncope today witnessed by the family. 07/27/2023--CT head and C-spine without contrast shows no acute intracranial abnormalities. Patient denies chest pain or shortness of breath. Patient is alert oriented x 3 moving all extremities spontaneously. * dizziness, dehydration and vomiting for several days, * Hypokalemia potassium 3.5, potassium was replaced i we will repeat the potassium in the night. Will continue to monitor and replete electrolytes * Leukocytosis -Resolved * Patient denies abdominal pain . Analgesics as needed. * Cough;Congestion: Improving. [facility] Single [facility]07/27/2023 4:22 pm CLINICAL HISTORY: Cough FINDINGS: Mild patchy right lung opacities better seen on CT chest same date may indicate a mild pneumonitis, Left lung appears clear, continue abx nd added Tesslon pearls prn cough CODE STATUS-full code DVT prophylaxis-Lovenox Diet regular Discharge Plan: Home Plan to discharge in: 24 Hours - Code Status/Comfort Care Code Status Assessed: Yes (full code) Code Status: Full Code (full code) Physician Review: Patient Assessed, Agree with Above Assessment and Plan Critical Care: No Time Spent Managing PTS Care (In Minutes): 35 (minutes) <Ken Munguia - Last Filed: 07/30/23 14:00> - Plan Pt seen and examined. I agree with the note by the HOT PLATE PRESS OPERATOR. Continue IVF and abx. <Aaliyah Tafoya - Last Filed: 07/31/23 19:50>
--- NOTE | 2023-07-30 19:01 | RAD REPORT ---
EXAM DESCRIPTION: RAD - Chest Single View - 07/29/2023 5:12 am CLINICAL HISTORY: Sob COMPARISON: None. FINDINGS: Single frontal radiograph view of the chest. Cardiomediastinal silhouette: Cardiomegaly. Lungs: Bilateral perihilar opacities. Low lung volumes. Leads overlie the chest. Bones: No acute osseous abnormality. Upper abdomen: No abnormality identified. IMPRESSION: Cardiomegaly with bilateral perihilar opacities. These findings could be seen with pulmo nary vascular congestion. Electronically signed by: Augustus Chicas DO 07/29/2023 06:09 AM BRANCH SPECIALIST M Due to temporary technical issues with the PACS/Fluency reporting system, reports are being signed by the in house radiologists without review as a courtesy to insure prompt reporting. The interpreting radiologist is fully responsible for the content of the report.
[2023-07-31] MEDS: IPRATROPIUM BROM 0.5MG/2.5ML NEB SCH ×3 (01:47→13:00)
[2023-07-31] MEDS: guaiFENesin 100 MG/5 ML UCUP PO PRN (02:25)
[2023-07-31] MEDS: BENZONATATE 100 MG CAP PO PRN (02:25)
[2023-07-31 04:43] VITALS: O2SAT 93
[2023-07-31 05:51] LABS: Potassium 3.6 mEq/L (3.5-5.1)
[2023-07-31] MEDS: PANTOPRAZOLE 40 MG INJ IVP SCH (08:16)
[2023-07-31] MEDS: ENOXAPARIN 40 MG/0.4 ML SQ SCH (08:17)
[2023-07-31] MEDS: AZITHROMYCIN IV 500 MG in NA CHLORIDE 0.9% 250 ML IVPB SCH (08:18)
[2023-07-31] MEDS: CEFTRIAXONE 1,000 MG in NA CHLORIDE 0.9% 50 ML IVPB SCH (08:18)
[2023-07-31] MEDS ORDERED: POTASSIUM CL SA 10 MEQ TAB PO ONE (09:00)
--- NOTE | 2023-07-31 11:04 | P.DS ---
Admission Date: 07/27/23 Discharge Date: 07/31/23 Disposition: ROUTINE DISCHARGE Discharge Condition: GOOD Reason for Admission: Nausea , vomiting, hypokalema, Brief History of Present Illness: This Lakeisha, 33-year-old female with no medical history presented to the emergency room with complaints of passing out prior to arrival. Patient has experienced syncope, collapsed. Episode was witnessed by the family. Patient reports that she has been sick for several days, unable to eat or drink. Patient is positive for dizziness, nausea, and vomiting, weakness, and diffuse abdominal pain. Patient denies chest pain or shortness of breath. Patient is alert oriented x 3 moving all extremities spontaneously. ED course Vital signs 118/80, pulse 108, respiration 18, temperature 99, pulse ox 95%, pain 10/10. EKG showing sinus tachycardia.QRS [place] is Normal. [place] interval is normal. QRS interval is normal. QT interval is normal. No Q waves. T waves are Normal. No ST changes noted. Clinical impression: NSR w/ Non-specific ST/T Changes and No evidence of ischemia. Patient was given normal saline 1 L bolus, Rocephin, Zofran, Zithromax, famotidine, albuterol inhalation, ipratropium inhalation, potassium 50 mEq p.o., and potassium IV for 20 mEq x 1 Lab evaluation-CBC showing leukocytosis WBC 13.8, elevated INR 1.21, metabolic panel hypokalemia potassium of 2.6 urinalysis is turbid with the microscopic hematuria. Lactic acid is normal . CT head and C-spine without contrast shows no acute intracranial abnormalities. Admitting the patient with a diagnosis of vomiting, dehydration, hypokalemia, UTI. Hospital Course: Pt is a 33-year-old female with past medical history of bipolar disorder who presented with syncope. The symptoms started 3 weeks ago when her entire family members got sick. She could not tell me the etiology of the sickness. Pt tested negative for COVID and flu. The symptoms worsened to the extent that pt could not eat or drink fluids due to nausea, vomiting and abd pain. On admission, lab studies showed WBC 13.8, Hgb 13, K 2.6, Cr 0.87, mag 2.1, Lactate is 1.4. CT head was unremarkable. CT abd showed mild patchy right lung opacities and mild splenomegaly. We admitted pt for dehydration, UTI, and pneumonia. We gave iv rocephin and azithro for pneumonia. We treated UTI with rocephin. The syncope was due to volume depletion. We gave IVF and monitored her labs and vital signs. We repleted potassium. CT head also showed a 2.4cm calcification. Pt denied any headache. The symptoms resolved and pt requested to be discharged. Pt was in NAD priot to discharge. Vital Signs/Physical Exam: Temp Pulse Resp BP Pulse Ox 97.6 F 63 17 112/59 L 96 07/31/23 08:00 07/31/23 08:00 07/31/23 08:00 07/31/23 08:00 07/31/23 08:00 Laboratory Data at Discharge: WBC 8.60 thou/uL (4.3-10.9) 07/30/23 06:25 Hgb 9.4 g/dL (12.0-15.0) L 07/30/23 06:25 Hct 28.3 % (36.0-45.0) L 07/30/23 06:25 Plt Count 296 thou/uL (152-406) 07/30/23 06:25 PT 13.2 SECONDS (9.5-12.5) H 07/27/23 15:10 INR 1.21 07/27/23 15:10 Sodium 137 mEq/L (136-145) 07/31/23 05:19 Potassium 3.6 mEq/L (3.5-5.1) 07/31/23 05:19 BUN 3 mg/dL (7-18) L 07/31/23 05:19 Creatinine 0.47 mg/dL (0.55-1.02) L 07/31/23 05:19 Glucose 96 mg/dL (74-106) 07/31/23 05:19 Phosphorus 2.4 mg/dL (2.5-4.9) L 07/30/23 06:25 Magnesium 1.7 mg/dL (1.6-2.4) 07/30/23 06:25 Total Bilirubin 0.4 mg/dL (0.2-1.0) 07/27/23 14:49 AST 23 U/L (15-37) 07/27/23 14:49 ALT 27 U/L (13-56) 07/27/23 14:49 Alkaline Phosphatase 82 U/L (45-117) 07/27/23 14:49 Triglycerides 85 mg/dL (<150) 07/28/23 04:54 Cholesterol 63 mg/dL (<200) 07/28/23 04:54 HDL Cholesterol 22 mg/dL (40-60) L 07/28/23 04:54 Cholesterol/HDL Ratio 2.86 07/28/23 04:54 Lipase 51 U/L (13-75) 07/27/23 14:49 Home Medications: Azithromycin 500 mg PO DAILY 3 Days #3 tab 07/31/23 Cefdinir [Cefdinir*] 300 mg PO BID 3 Days #6 cap 07/31/23 New Medications: Azithromycin 500 mg PO DAILY 3 Days #3 tab Cefdinir [Cefdinir*] 300 mg PO BID 3 Days #6 cap Physician Discharge Instructions: Continue ad maren activity. Take cefdinir and azithro for 3 more days. Follow up with PCP within 2 weeks Diet: AHA Activity: Ad maren Followup: NONE,NONE [Primary Care Provider] -
[2023-07-31 14:06] VITALS: BP 121/76; TEMP 99.1
--- NOTE | 2023-07-31 17:06 | EKG ---
Test Date: 2023-07-27 Test Time: 14:54:20 Flame Cutting Machine Operator: PAOLA MEASUREMENT RESULTS: Intervals: Rate: 80 ND: 138 QRSD: 80 QT: 358 QTc: 412 [place]: P: 131 ND: 138 QRS: 154 T: 176 INTERPRETIVE STATEMENTS: Suspect arm lead reversal, interpretation assumes no reversal Unusual P axis, possible ectopic atrial rhythm Lateral infarct, age undetermined ST & T wave abnormality, consider inferior ischemia Abnormal ECG No previous ECG available for comparison Electronically Signed On 07-31-23 16:56:02 BOLT MACHINE OPERATOR by Vicente Serna
== END 2023-07-31 15:45 | disposition home or self-care (01) | DRG 640 ==
LOC: ER 13:27 → ERHOLD 17:35 → 4TH 19:22
PROVIDERS: ADMIT Hospitalist; ATTEND Hospitalist
PROC: 4A033R1 Measurement of Arterial Saturation, Peripheral, Percutaneous Approach (ICD-10-PCS; principal; 2023-07-27)
DX: E87.6 Hypokalemia (principal); J18.9 Pneumonia, unspecified organism; N30.01 Acute cystitis with hematuria; Z68.41 Body mass index [BMI] 40.0-44.9, adult; E66.9 Obesity, unspecified; E86.0 Dehydration; E86.9 Volume depletion, unspecified; E86.1 Hypovolemia; Z11.52 Encounter for screening for COVID-19
CPT/HCPCS: 36415; 36600; 70450; 71045; 71260; 72125; 74177; 80048; 80053; 80061; 81001; 81025; 82805; 83605; 83690; 83735; 83880; 84100; 84132; 84439; 84443; 84484; 85025; 85610; 87040; 87045; 87046; 87070; 87086; 87088; 87177; 87205; 87209; 87324; 87804; 87811; 89055; 93005; 94640; 99285; C9113; J0696; J1650; J2270; J2405; J3475; J3480; J7030; J7040; J7050; J7613; J7614; J7644; Q9967

== ENCOUNTER 2024-11-29 16:14 | Emergency (ER) | payer OTHER ==
[2024-11-29] MEDS ORDERED: DIAZEPAM 5 MG TABLET ONE (17:19)
[2024-11-29] MEDS ORDERED: HYDROCODONE/APAP 5/325 MG TAB ONE (17:19)
--- NOTE | 2024-11-29 17:39 | RAD REPORT ---
EXAMINATION: XR RIGHT SHOUDLER CLINICAL INDICATION: Female, 34 years old. PAIN RIGHT TECHNIQUE: Multiple views of the right shoulder were obtained. COMPARISON: No prior exam. FINDINGS: No bone or joint abnormality detected.
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
[2024-11-29 18:51] VITALS: BP 127/74; TEMP 98.3; O2SAT 98
== END 2024-11-29 18:31 | disposition home or self-care (01) ==
LOC: ER 16:14
DX: M25.511 Pain in right shoulder (principal); V59.59XA Passenger in pick-up truck or van injured in collision with other motor vehicles in traffic accident, initial encounter
CPT/HCPCS: 72040; 99283